=== PATIENT | male | born 1935 | race Asian ===

== ENCOUNTER → 2017-12-10 | Outpatient (CLI) | END | disposition home or self-care (01) ==

== ENCOUNTER → 2018-03-18 | Outpatient (CLI) | payer MEDICARE, OTHER ==
[~2018-03-18] MED LIST: AMIO200T4 PO; AMLO2.5T2 PO; ASPI-1046 PO; ATOR10TA65 PO; CARB1TAB2 PO; CHOL100062 PO; DONE10TA7 PO; FURO40TA4 PO; ISOS30TA67 PO; METO-448 PO; MULT1TAB6 PO; PANT20TA3 PO; RTATR NEB
--- NOTE | 2018-03-19 13:35 | RADRPT ---
Echocardiogram Report Patient Name: CM DOWNS Gender: Male Date: 1935 Study Date: 18-Mar-2018 [employer]el[employer] Interpreter/Translator: Michael Mcgowan JASMIN Location: EKG Ref. Physician: LILLY SAUL Quality: Adequate Procedures: Transthoracic echocardiogram with complete 2D, M-Mode, and doppler examination. Indications: Congestive Heart Failure. 2D/M Mode Doppler Measurement Value Normal Ranges Measurement Value Normal Ranges LVIDd 2D 3.4 3.5 - 5.6 cm AV Peak Ovidio 1.1 m/sec LVIDs 2D 2.6 2.1 - 4.1 cm AV Peak PG 5.0 mmHg FS 2D 24.9 % LVOT Peak Ovidio 0.7 m/sec LVPWd 2D 1.4 0.6 - 1.1 cm LVOT Peak PG 2.0 mmHg IVSd 2D 1.4 0.6 - 1.1 cm MV E Peak Ovidio 0.7 m/sec IVS/LVPW 2D 1.0 MV A Peak Ovidio 1.2 m/sec AoR Diam 2D 3.5 2.0 - 3.7 cm MV E/A 0.6 LA/Ao 2D 1 0 - 1 MV Decel Time 236 msec EDV 2D 39.7 cm3 MV E/A 0.6 ESV 2D 16.8 cm3 TR Peak Ovidio 3.2 m/sec LA Dimen 2D 3.6 2.3 - 4.0 cm TR Peak PG 41.0 mmHg RVSP 44.0 mmHg Findings Left Ventricle: Normal left ventricular systolic function. Normal left ventricular cavity size. Moderate concentric left ventricular hypertrophy. Ejection fraction is visually estimated at 55 %. Tissue Doppler/Mitral Doppler indices are consistent with impaired relaxation (Stage I diastolic dysfunction). Right Ventricle: Pacemaker right heart. Left Atrium: The left atrium is normal in size. Right Atrium: The right atrium is normal in size. Mitral Valve: Mild mitral leaflet calcification. Mild mitral annular calcification. Mild mitral valve regurgitation. Aortic Valve: No significant aortic stenosis or insufficiency. Aortic cusps appear mildly calcified. Trace aortic valve regurgitation. Tricuspid Valve: Estimated peak PA systolic pressure 44 mmHg. Tricuspid valve appears mildly thickened. There is moderate tricuspid regurgitation. Pulmonic Valve: Pulmonic valve not well visualized. There is trace pulmonic regurgitation. Pericardium: Normal pericardium with no significant pericardial effusion. Aorta: Ascending aorta is mildly dilated. Ascending Aorta 4.20 cm. IVC: Normal size and normal respiratory collapse consistent with normal right atrial pressure. Conclusions Normal left ventricular systolic function. Normal left ventricular cavity size. Moderate concentric left ventricular hypertrophy. Ejection fraction is visually estimated at 55 %. Tissue Doppler/Mitral Doppler indices are consistent with impaired relaxation (Stage I diastolic dysfunction). Mild mitral leaflet calcification. Mild mitral annular calcification. Mild mitral valve regurgitation. No significant aortic stenosis or insufficiency. Aortic cusps appear mildly calcified. Trace aortic valve regurgitation. Estimated peak PA systolic pressure 44 mmHg. Tricuspid valve appears mildly thickened. There is moderate tricuspid regurgitation. Electronically Signed By: Vern Puckett 19-Mar-2018 13:34:01 -0800 Patient Name: CM DOWNS Study Date: 18-Mar-2018 [id number]
== END | disposition home or self-care (01) ==
LOC: EKG 09:40
PROVIDERS: ATTEND Internal Medicine
DX: I50.30 Unspecified diastolic (congestive) heart failure (principal)
CPT/HCPCS: 93306

== ENCOUNTER → 2018-07-19 | Outpatient (CLI) | payer MEDICARE, OTHER ==
--- NOTE | 2018-07-19 18:42 | RADRPT ---
Echocardiogram Report Patient Name: Elen DOWNS ID: [id number] : 1935 (82y 9m)Study Date: 07/19/2018 10:58:17 AM Gender: MAccession #: [id number] Tech: Arabella Pryor RDCS Location: ekg Ref.Physician: LILLY MOLINA Height(Cm): BSA: Weight(Kg): Quality: AdequateOrder Physician: LILLY MOLINA Account #: Procedures: Echocardiographic Report: Transthoracic echocardiogram with complete 2D, M-Mode, and doppler examination. Indications: Atrial Fibrillation. Measurements: 2D/M Mode Doppler Measurement Value Normal Range Measurement Value Normal Range LVIDd 2D 3.3 [ 4.2 - 5.8 ] cm AV Peak Ovidio 1.3 [ 100.0 - 170.0 ] cm/sec LVIDs 2D 2.6 [ 2.5 - 4.0 ] cm AV Peak PG 6.0 [ 2.0 - 9.0 ] mmHg LVPWd 2D 1.2 [ 0.6 - 1.0 ] cm LVOT Peak Ovidio 0.8 [ 70.0 - 110.0 ] cm/sec IVSd 2D 1.1 [ 0.6 - 1.0 ] cm LVOT Peak PG 2.0 [ 2.0 - 6.0 ] mmHg AoR Diam 2D 3.2 [ 2.6 - 3.4 ] cm MV E Peak Ovidio 0.6 [ 60.0 - 130.0 ] cm/sec EDV 2D 44.8 [ 62.0 - 150.0 ] ml MV A Peak Ovidio 0.9 [ 100.0 - 120.0 ] cm/sec ESV 2D 24.4 [ 21.0 - 61.0 ] ml MV E/A 0.8 [ 0.8 - 1.5 ] ratio EF 2D 45.5 [ 52.0 - 72.0 ] percent MV Decel Time 275 [ 104 - 258 ] msec LA Dimen 2D 3.1 [ 3.0 - 4.0 ] cm Lat E` Ovidio 0.1 [ 10.0 - 15.0 ] cm/sec Lateral E/E` 12.2 [ 1.0 - 2.0 ] ratio MV E/A 0.8 [ 0.8 - 1.5 ] ratio TR Peak Ovidio 2.9 [ 100.0 - 280.0 ] cm/sec TR Peak PG 34.0 mmHg RVSP 37.0 [ 10.0 - 36.0 ] mmHg RA Pressure 3.0 mmHg Findings: Left Ventricle: Normal left ventricular systolic function. Normal left ventricular cavity size. Mild concentric left ventricular hypertrophy. Ejection fraction is visually estimated at 55 %. Right Ventricle: Normal right ventricular size. Normal right ventricular systolic function. Linear artifact in right ventricle suggestive of catheter, pacer lead, or ICD lead. Left Atrium: The left atrium is normal in size. Right Atrium: There is mild enlargement of right atrium. Mitral Valve: Mitral valve leaflets appear mildly thickened. Mild mitral annular calcification. Trace mitral regurgitation. Aortic Valve: No hemodynamically significant aortic stenosis by doppler. Aortic cusps appear mildly calcified. Trace aortic valve regurgitation. Tricuspid Valve: Normal appearance of the tricuspid valve. The estimated Peak RVSP is 37 mmHg. There is moderate tricuspid regurgitation. Pulmonic Valve: Pulmonic valve not well visualized. Pericardium: Normal pericardium with no significant pericardial effusion. Aorta: Normal aortic root. IVC: Normal size and normal respiratory collapse consistent with normal right atrial pressure. Conclusions: Normal left ventricular systolic function. Normal left ventricular cavity size. Mild concentric left ventricular hypertrophy. Ejection fraction is visually estimated at 55 %. Mitral valve leaflets appear mildly thickened. Mild mitral annular calcification. Trace mitral regurgitation. No hemodynamically significant aortic stenosis by doppler. Aortic cusps appear mildly calcified. Trace aortic valve regurgitation. Normal appearance of the tricuspid valve. The estimated Peak RVSP is 37 mmHg. There is moderate tricuspid regurgitation. Electronically Signed By: Lilly Molina 2018-07-19 18:41:50 PDT
== END | disposition home or self-care (01) ==
LOC: EKG 10:41
PROVIDERS: ATTEND Internal Medicine
DX: I48.91 Unspecified atrial fibrillation (principal)
CPT/HCPCS: 93306

== ENCOUNTER → 2018-10-21 | Outpatient (CLI) | payer MEDICARE, OTHER | END | disposition home or self-care (01) | LOC: EKG 13:40 | PROVIDERS: ATTEND Internal Medicine | DX: I48.91 Unspecified atrial fibrillation (principal) | CPT/HCPCS: 93306 ==